=== PATIENT | female | born 1940 | race Caucasian/White ===

== ENCOUNTER 2018-02-03 05:33 | Inpatient (IN) | payer OTHER ==
[2018-01-25 13:03] LABS: HEMATOCRIT 47.4 % (37.0-47.0); HEMOGLOBIN 15.6 gm/dL (12.0-15.0); MCH 32.1 pg (26.0-34.0); MCHC 32.9 g/dL (28.0-37.0); MCV 97.8 fL (80.0-100.0); RBC 4.84 mil/uL (4.20-5.00); RDW 13.5 % (10.5-14.5); WBC 6.2 thou/uL (4.0-11.0)
[2018-01-25 13:07] LABS: URINE BILIRUBIN NEGATIVE (Negative); URINE BLOOD NEGATIVE (Negative); URINE CLARITY CLEAR; URINE COLOR YELLOW; URINE GLUCOSE-RANDOM* NEGATIVE (Negative); URINE KETONES NEGATIVE (Negative); URINE LEUKOCYTES-REFLEX NEGATIVE (Negative); URINE NITRITE-REFLEX NEGATIVE (Negative); URINE PROTEIN (DIPSTICK) NEGATIVE (Negative); URINE SPECIFIC GRAVITY >= 1.030 (1.005-1.035); URINE UROBILINOGEN 0.2 E.U./dl (0.2-1.0)
[2018-01-25 13:11] LABS: ALBUMIN 3.5 g/dL (3.4-5.0); CALCIUM 9.8 mg/dL (8.5-10.1); CREATININE 0.9 mg/dL (0.6-1.0); POTASSIUM 4.5 mmol/L (3.5-5.1)
[2018-01-25 13:22] LABS: INR 1.2
[~2018-02-03] VITALS: Ht 154.9 cm; Wt 74.8 kg
[2018-02-03] VITALS (8 sets, daily range): BP systolic 105–147; BP diastolic 57–73
--- NOTE | ~2018-02-03 | O ---
[facility] [place] [address] OPERATIVE REPORT Name: SYED COSTA Room #: 351-P [facility] IN M.R.#: [id number] Admission: 02/03/18 Attend Phys: Tremaine Vela MD Discharge: Date of : 42 Report #: [id number] THIS REPORT FOR: //name// CC: Peter Vela DATE OF SERVICE: 02/03/2018 PREOPERATIVE DIAGNOSIS: Right knee osteoarthritis. POSTOPERATIVE DIAGNOSIS: Right knee osteoarthritis. PROCEDURE: Right total knee arthroplasty using the Navio robotic assistance. SURGEON: Tremaine Vela MD STUDENT SERVICES DEAN: Mahnaz Montez PA-C INDICATION FOR ASSISTANCE: Throughout the case, extensive retraction and manipulation of the knee was required. This was afforded to me by my executive personal assistant. ANESTHESIA: LMA with an adductor canal block. IMPLANTS: [employer] size 4 Legion cobalt chrome posterior stabilized femur, a size 3 tibia, a size 11 polyethylene and a size 32 patella. TOURNIQUET TIME: 66 minutes. ESTIMATED BLOOD LOSS: 25 mL. COMPLICATIONS: None. SPECIMENS: None. CONDITION UPON LEAVING THE OPERATING ROOM: Stable. INDICATION FOR PROCEDURE: The patient is a 77-year-old female with severe right knee osteoarthritis. She had failed conservative measures for this and after discussion with her, she elected for right total knee arthroplasty. DESCRIPTION OF PROCEDURE: Risks, benefits, alternatives, complications were discussed in detail with the patient including but not limited to risk of anesthesia, risk of damage to nerves, arteries and blood vessels, risk for infection and bleeding, risk for continued knee pain and need for reoperation. Informed consent was obtained from the patient. The right knee was appropriately marked in the preoperative holding area. IV Ancef was given for [address] [address] OPERATIVE REPORT Name: SYED COSTA Room #: 351-P [facility] IN .R.#: [id number] Admission: 02/03/18 Attend Phys: Tremaine Vela MD Discharge: Date of : 42 Report #: [id number] preoperative antibiotics. Adductor canal block was placed by Anesthesia. She was brought to the operating room and placed in supine position on the operating room table. LMA anesthesia was induced without complication. Tourniquet was placed on the right thigh. Right lower extremity was prepped and draped in normal sterile fashion. Timeout was performed properly identifying the patient and procedure as well as the instrumentation and implants. All in the operating room were in agreement. Right lower extremity was exsanguinated. Tourniquet was inflated. Tourniquet time was 66 minutes. Standard midline approach to the knee was made with a 10 blade through the skin. Dissection was taken down sharply to the fascia and deep flaps were developed medially and laterally. A fresh 10 blade was used to make a medial parapatellar arthrotomy and the knee was inspected. There was severe tricompartmental osteoarthritis. ACL and PCL were removed sharply. Reference pins were then placed in the femur and tibia for the Navio system. The knee was then digitally mapped using the [email or web address] robotic system and an intraoperative plan was made. We sized a size 4 femur and a size 3 tibia. After acceptance of the plan, the distal femoral cut was made with a Navio bur. A size 4, 4-in-1 cutting block was then placed. Anterior, posterior and chamfer cuts were made. After this, the knee was flexed. Remainder of the menisci removed with Bovie cautery. The tibial resection was then made using the Navio for placement of the resection guide. After this, flexion and extension gaps were checked and found to be equal. Tibia was sized, found to be a size 3, a size 3 tibial trial was placed and punched. A size 4 femoral trial was then placed and the box cut was made. After this, this was trialed with a size 10 and then a size 11 polyethylene and this was found to have good balance in flexion and extension with the 11 both digitally with Navio system as well as manually. After this, 9 mm was taken off the posterior surface of the patella. A size 32 patellar trial button was placed. The knee was taken through range of motion, found to be stable, found to have good patellar tracking. After this, trial components were removed. Bony ends were thoroughly irrigated with normal saline. A final size 3 tibia, size 4 Legion cobalt chrome posterior stabilized femur and a size 32 patella were cemented in place using standard cementation techniques. While the cement cured, a periarticular injection consisting of morphine, ropivacaine, epinephrine and Toradol were placed around the knee joint capsule. After the cement cured, tourniquet was deflated. Hemostasis was obtained with Bovie cautery. Final size 11 polyethylene was placed. The fascia was closed with 0 Vicryl, skin was closed with 2-0 Vicryl, 3-0 Monocryl and a LIEN dressing was applied. The patient tolerated this procedure well and went to recovery room under care of Anesthesia postoperatively. By: [id number] Tremaine Vela MD /stephanie
--- NOTE | ~2018-02-03 | EKG ---
[address] [address] ELECTROCARDIOGRAM REPORT Name: LELAND COSTALL Giulia Room #: [facility]#: [id number] Admission: Attend Phys: Tremaine Vela MD Discharge: Date of : 42 Report #: [id number] THIS REPORT FOR: //name// [facility] Test Date: 2018-01-25 Test Time: 13:14:32 Pat Name: SYED COSTA Department: Room: Gender: F Carpenter Repairer: marcell sanchez : 1940 Requested By: Tremaine Vela Order Number: [id number] MD: Marco A Rubin Measurements Intervals [place] Rate: 77 P: -6 DE: 131 QRS: 56 QRSD: 204 T: 11 QT: 404 QTc: 458 Interpretive Statements Sinus rhythm Atrial premature complex Probable left ventricular hypertrophy No previous ECG available for comparison Electronically Signed On 01-26-2018 17:06:36 CDT by Marco A Rubin [email or web address] <ELECTRONICALLY SIGNED> By: Marco A Rubin MD 01/26/18 1706 1314 1314 MD RINKU Bustamante
[~2018-02-03 05:33] MED LIST: BENTYL 20 MG TA20 M1 PO; BUSPAR30 MG PO; BUSPIRONE HCL15 MG PO; CYMBALTA60 MG PO; MILK OF MA2400 MG/10 PO; MIRTAZAPINE15 M2 PO; PROTONIX40 M1 PO; STOOL SOFTENER100 MG PO; TRAMADOL 50 MG50 MG PO; VALIUM5 MG PO; XARELTO20 MG PO; ZYPREXA 5 MG TAB5 M1 PO
[2018-02-04 03:30] VITALS: BP 101/57
[2018-02-04 04:00] VITALS: BP 117/70
[2018-02-04 05:47] LABS: HEMATOCRIT 39.6 % (37.0-47.0); HEMOGLOBIN 12.6 gm/dL (12.0-15.0); MCH 31.2 pg (26.0-34.0); MCHC 31.9 g/dL (28.0-37.0); MCV 98.1 fL (80.0-100.0); RBC 4.03 mil/uL (4.20-5.00); RDW 13.1 % (10.5-14.5); WBC 11.5 thou/uL (4.0-11.0)
[2018-02-04 07:41] VITALS: BP 104/65
[2018-02-04 08:00] VITALS: BP 104/65
[2018-02-04 15:17] VITALS: BP 114/65
[2018-02-04 19:10] VITALS: BP 133/79
[2018-02-05 00:14] VITALS: BP 117/59
[2018-02-05 04:50] VITALS: BP 125/56
[2018-02-05 07:36] LABS: RDW 12.9 % (10.5-14.5); WBC 7.1 thou/uL (4.0-11.0)
[2018-02-05 07:38] LABS: HEMATOCRIT 39.3 % (37.0-47.0); HEMOGLOBIN 12.8 gm/dL (12.0-15.0); MCH 31.8 pg (26.0-34.0); MCHC 32.5 g/dL (28.0-37.0); MCV 97.6 fL (80.0-100.0); RBC 4.03 mil/uL (4.20-5.00)
[2018-02-05 20:30] VITALS: BP 121/64
[2018-02-06 04:30] VITALS: BP 118/72
[2018-02-06 05:43] LABS: HEMATOCRIT 36.3 % (37.0-47.0); HEMOGLOBIN 11.6 gm/dL (12.0-15.0); MCH 31.3 pg (26.0-34.0); MCV 97.7 fL (80.0-100.0); RBC 3.72 mil/uL (4.20-5.00); RDW 13.1 % (10.5-14.5); WBC 8.5 thou/uL (4.0-11.0)
[2018-02-06 05:58] LABS: CALCIUM 8.3 mg/dL (8.5-10.1); CREATININE 0.7 mg/dL (0.6-1.0); POTASSIUM 4.2 mmol/L (3.5-5.1)
[2018-02-06 07:43] VITALS: BP 123/64
[2018-02-06 15:35] VITALS: BP 124/71
[2018-02-06 19:46] VITALS: BP 155/97
[2018-02-07 05:01] VITALS: BP 129/68
[2018-02-07 08:27] VITALS: BP 108/50
[2018-02-07 11:59] VITALS: BP 108/50
[2018-02-07 19:20] VITALS: BP 146/75
[2018-02-08 06:27] VITALS: BP 161/85
[2018-02-08 08:06] VITALS: BP 129/82
[2018-02-08 16:24] VITALS: BP 124/75
[2018-02-08 20:00] VITALS: BP 116/68
[2018-02-09 04:39] VITALS: BP 144/89
== END 2018-02-09 17:34 | DRG 470 ==
LOC: 4E 05:33 → TBA 05:33 → 3W 05:33 → PRE 05:42 → 3W 17:44 → 4E 02-04 23:22
PROVIDERS: Hospitalist; Orthopaedic Surgery
PROC: 0SRC0J9 Replacement of Right Knee Joint with Synthetic Substitute, Cemented, Open Approach (ICD-10-PCS; principal; 2018-02-03)
DX: M17.11 Unilateral primary osteoarthritis, right knee (principal); F32.9 Major depressive disorder, single episode, unspecified; K21.9 Gastro-esophageal reflux disease without esophagitis; F41.0 Panic disorder [episodic paroxysmal anxiety]; K59.00 Constipation, unspecified; Z86.718 Personal history of other venous thrombosis and embolism; Z87.19 Personal history of other diseases of the digestive system; Z86.711 Personal history of pulmonary embolism; Z79.01 Long term (current) use of anticoagulants; Z79.899 Other long term (current) drug therapy; Z28.21 Immunization not carried out because of patient refusal
CPT/HCPCS: 10779; 10783; 50010; 50101; 50415; 50954; 51130; 51225; 51771; 53000; 53078; 53364; 54118; 56527; 56528; 57095; 57103; 57109; 57110; 57113; 57127; 57180; 62110; 62900; 64042; 70005